=== PATIENT | female | born 1945 | race Caucasian/White ===

== ENCOUNTER 2018-09-05 12:05 | Emergency (ER) | payer MEDICARE ==
[2018-09-05] MEDS ORDERED: NORMAL SALINE 1000 ML 1,000 ML IV ONE ×2 (12:40→14:39)
[2018-09-05] MEDS ORDERED: ONDANSETRON HCL INJ/PF 4 MG/2 ML SDV IV ONE (12:40)
--- NOTE | 2018-09-05 13:27 | ER Document Report ---
Entered by KAIN JANSEN SCRIBE 09/05/18 1325 Acting as scribe for:COLIN AMADO DO ED Medical Screen (RME) - General Chief Complaint: Flu Symptoms Stated Complaint: POSSIBLE FLU Time Seen by Provider: 09/05/18 12:39 Primary Care Provider: KIMBERLEY MORRISON MD [Primary Care Provider] - Follow up as needed Mode of Arrival: Ambulatory Information source: Patient Notes: Patient is a 72 year old female with HTN, a colostomy bag and a history of colon cancer resected in [place] presents to the emergency department complaining of general malaise with associated symptoms of cough, rhinorrhea, chest pain and diarrhea. Patient states approximately 2 weeks ago she had a cough and congestion that initially relieved on its own but returned this week. She states the symptoms have worsened and she also developed chest pain when coughing. She states due to her symptoms she ordered 500 mg amoxicilin online and took approximately 3 doses. She states she has also used DayQuil, honey and cinnamon in attempt to alleviate her symptoms. I have greeted and performed a rapid initial assessment of this patient. A comprehensive ED assessment and evaluation of the patient, analysis of test results and completion of the medical decision making process will be conducted by additional ED providers. GENERAL: Alert, in a wheelchair, interacts well. No acute distress but does appear fatigued HEAD: Normocephalic, Atraumatic. EYES: Pupils equal, round, and reactive to light. EOMI. ENT: Oral mucosa moist, tongue midline. NECK: Full range of motion. Supple. Trachea midline. LUNGS: Expiratory rhonchi in the RLL. No respiratory distress. HEART: Regular rate and rhythm. No murmurs, gallops, or rubs. ABDOMEN: Soft, tender to palpate colostomy bag. Non-distended. Bowel sounds present in all 4 quadrants. EXTREMITIES: Moves all four extremities spontaneously. PSYCH: Normal affect, normal mood. TRAVEL OUTSIDE OF THE [place] IN LAST 30 DAYS: No - Related Data Allergies/Adverse Reactions: No Known Allergies Allergy (Verified 09/05/18 12:06) Past Medical History - Social History Frequency of alcohol use: None Drug Abuse: None Renal/ Medical History: Denies: Hx Peritoneal Dialysis Past Surgical History: Reports: Hx Abdominal Surgery - colostomy/colon resection, Hx Cholecystectomy, Hx Tubal Ligation Physical Exam - Vital signs Vitals: Temp Pulse Resp BP Pulse Ox 97.6 F 118 H 18 106/76 100 09/05/18 12:37 09/05/18 12:37 09/05/18 12:37 09/05/18 12:37 09/05/18 12:37 Course - Vital Signs Vital signs: Temp Pulse Resp BP Pulse Ox 97.6 F 118 H 18 106/76 100 09/05/18 12:37 09/05/18 12:37 09/05/18 12:37 09/05/18 12:37 09/05/18 12:37 Doctor's Discharge - Discharge Referrals: KIMBERLEY MORRISON MD [Primary Care Provider] - Follow up as needed I personally performed the services described in the documentation, reviewed and edited the documentation which was dictated to the scribe in my presence, and it accurately records my words and actions.
--- NOTE | 2018-09-05 13:39 | RADIOLOGY REPORT (SQ) ---
EXAM DESCRIPTION: CHEST 2 VIEWS COMPLETED DATE/TIME: 09/05/2018 1:13 pm REASON FOR STUDY: RLL rhonchi COMPARISON: Two-view chest 09/01/2008 EXAM PARAMETERS: NUMBER OF VIEWS: two views TECHNIQUE: Digital Frontal and Lateral radiographic views of the chest acquired. RADIATION DOSE: NA LIMITATIONS: none FINDINGS: LUNGS AND PLEURA: No opacities, masses or pneumothorax. No pleural effusion. MEDIASTINUM AND HILAR STRUCTURES: No masses or contour abnormalities. HEART AND VASCULAR STRUCTURES: Heart normal size. No evidence for failure. BONES: No acute findings. HARDWARE: Clips right upper quadrant post cholecystectomy OTHER: No other significant finding. IMPRESSION: NO ACUTE RADIOGRAPHIC FINDING IN THE CHEST. TECHNICAL DOCUMENTATION: JOB ID: [id number] [employer]- All Rights Reserved Reading location - IP/workstation name: [email or web address]
[2018-09-05 14:02] LABS: ABSOLUTE LYMPHOCYTES (AUTO) 2.4 10^3/uL (0.5-4.7); ABSOLUTE NEUT (AUTO) 6.3 10^3/uL (1.7-8.2); BASOPHILS % (AUTO) 0.2 % (0-2); EOSINOPHILS % (AUTO) 0.3 % (0-6); HEMATOCRIT 45.3 % (36.0-47.0); HEMOGLOBIN 15.7 g/dL (12.0-15.5); LYMPHOCYTES % (AUTO) 24.6 % (13-45); MEAN CORPUSCULAR HEMOGLOBIN 31.1 pg (27.0-33.4); MEAN CORPUSCULAR HGB CONC 34.6 g/dL (32.0-36.0); MEAN CORPUSCULAR VOLUME 90 fl (80-97); MONOCYTES % (AUTO) 10.1 % (3-13); PLATELET COUNT 215 10^3/uL (150-450); RED BLOOD COUNT 5.04 10^6/uL (3.72-5.28); RED CELL DISTRIBUTION WIDTH 12.6 % (11.5-14.0); SEGMENTED NEUTROPHILS % (AUTO) 64.8 % (42-78); TOTAL CELLS COUNTED % (AUTO) 100 %; WHITE BLOOD COUNT 9.7 10^3/uL (4.0-10.5)
[2018-09-05 14:21] LABS: ALANINE AMINOTRANSFERASE 24 U/L (9-52); ALBUMIN 4.9 g/dL (3.5-5.0); ALKALINE PHOSPHATASE 88 U/L (38-126); ANION GAP 17 (5-19); ASPARTATE AMINO TRANSFERASE 23 U/L (14-36); BILIRUBIN,DIRECT 0.2 mg/dL (0.0-0.4); BILIRUBIN,TOTAL 0.5 mg/dL (0.2-1.3); BLOOD UREA NITROGEN 37 mg/dL (7-20); CALCIUM 9.7 mg/dL (8.4-10.2); CARBON DIOXIDE 18 mmol/L (22-30); CHLORIDE 102 mmol/L (98-107); GLUCOSE 105 mg/dL (75-110); POTASSIUM 3.7 mmol/L (3.6-5.0); SODIUM 137.2 mmol/L (137-145); TOTAL PROTEIN 7.8 g/dL (6.3-8.2)
[2018-09-05] MEDS ORDERED: IPRATROPIUM/ALBUTEROL 0.5-2.5 MG/3 ML AMPUL NEB ONE (14:39)
--- NOTE | 2018-09-05 14:45 | ER Document Report ---
ED General - General Chief Complaint: Flu Symptoms Stated Complaint: POSSIBLE FLU Time Seen by Provider: 09/05/18 12:39 Primary Care Provider: KIMBERLEY MORRISON MD [Primary Care Provider] - Follow up as needed Mode of Arrival: Ambulatory TRAVEL OUTSIDE OF THE [place] IN LAST 30 DAYS: No - HPI Notes: Patient is a 72-year-old female that presents to the emergency department for chief complaint of cough and congestion. Patient reports 1 week of sinus congestion and nonproductive cough. She reports fever at home but has not taken her temperature. She states she has had chills intermittently. Patient does smoke daily but denies history of COPD in the pas t. She denies ever needing breathing treatments in the past. She did not get an influenza vaccine this year. Patient also complaining of malaise with decreased appetite, nausea, and diarrhea. Patient states that she has a history of large and small bowel resection with colostomy secondary to colon cancer. She is not currently undergoing any chemotherapy or radiation. She states her colostomy output has been significantly greater over the last 2-3 days then her usual. She denies any black or bloody stools. She denies any emesis. Patient has taken 3 doses of amoxicillin 500 mg which she ordered online which did not improve her symptoms. Past Medical History: Hypertension, colon cancer, history of PA Past Surgical History: Colostomy Social History: Daily tobacco. Denies alcohol and drug use Family History: Reviewed and noncontributory for presenting illness Allergies: Reviewed, see documented allergy list. REVIEW OF SYSTEMS: CONSTITUTIONAL : fever chills No diaphoresis recent illness EENT: No vision changes congestion No sore throat CARDIOVASCULAR: No chest pain No palpitations RESPIRATORY: shortness of breath cough No difficulty breathing GASTROINTESTINAL: No abdominal pain nausea No vomiting diarrhea GENITOURINARY: No dysuria No hematuria No difficulty urinating MUSCULOSKELETAL: No back pain No leg pain No arm pain SKIN: No rashes No lesions LYMPHATIC: No swollen, enlarged glands. NEUROLOGICAL: No lightheadedness No headache No weakness No paresthesias PSYCHIATRIC: No anxiety No depression PHYSICAL EXAMINATION: Vital signs reviewed, nursing noted reviewed. GENERAL: Well-appearing, well-nourished and in no acute distress. HEAD: Atraumatic, normocephalic. EYES: Eyes appear normal, extraocular movements intact, sclera anicteric, conjunctiva are normal. ENT: nares patent, oropharynx clear without exudates. Mildly dry mucous membranes. NECK: Normal range of motion, supple without lymphadenopathy LUNGS: Breath sounds wheezy to auscultation bilaterally. No accessory muscle use or tachypnea HEART: Tachycardic rate and regular rhythm without murmurs ABDOMEN: Light brown liquidy stool in colostomy bag, colostomy clean, dry with no surrounding tenderness or erythema, abdomen soft, nontender, hyperactive bowel sounds. No rebound, guarding, or rigidity. No masses appreciated. EXTREMITIES: Nontender, good range of motion, no pitting or edema. NEUROLOGICAL: No focal neurological deficits. Moves all extremities spontaneously Motor and sensory grossly intact on exam. PSYCH: Normal mood, normal affect. SKIN: Warm, Dry, normal turgor, no rashes or lesions noted on exposed skin - Related Data Allergies/Adverse Reactions: No Known Allergies Allergy (Verified 09/05/18 12:06) Past Medical History - General Information source: Patient - Social History Smoking Status: Current Every Day Smoker Frequency of alcohol use: None Drug Abuse: None Family History: Reviewed & Not Pertinent Patient has suicidal ideation: No Patient has homicidal ideation: No Renal/ Medical History: Denies: Hx Peritoneal Dialysis Past Surgical History: Reports: Hx Abdominal Surgery - colostomy/colon resection, Hx Cholecystectomy, Hx Tubal Ligation Physical Exam - Vital signs Vitals: Temp Pulse Resp BP Pulse Ox 97.6 F 118 H 18 106/76 100 09/05/18 12:37 09/05/18 12:37 09/05/18 12:37 09/05/18 12:37 09/05/18 12:37 Course - Re-evaluation Re-evalutation: 09/05/18 14:43 Vitals reviewed. Nursing notes reviewed. Patient received IV hydration and Zofran in triage which she states is making her feel much better. Her heart rate has improved after 1 L of normal saline. Patient's chest x-ray shows no pneumonia. She is currently afebrile and has had symptoms for the past week, influenza testing is not currently indicated although it may be causing her upper respiratory symptoms and fevers. Patient's lab work shows elevated creatinine at 1.9 and patient denies any history of kidney issues in the past. This is likely related to poor oral intake and diarrhea causing dehydration. Patient will be ordered a second liter of IV fluids as well as DuoNeb for further symptomatic management. Urinalysis still pending. 09/05/18 15:54 Urinalysis does show mild urinary tract infection. Patient on reevaluation is feeling much better after 2 L of IV fluids. She has remained hemodynamically stable. She is able to tolerate oral intake. Patient was offered observation in the hospital for her acute kidney injury but has declined. I feel she is otherwise safe for discharge. We had a long conversation regarding increasing her oral intake. She was advised to see her primary care doctor, Dr. Morrison, tomorrow for recheck of her renal function. She will return to the emergency room if she is having any difficulty tolerating oral intake or feels she is becoming dehydrated again. Patient will be given albuterol for her cough symptoms. She was counseled on tobacco cessation. Patient is stable at time of discharge and in agreement with plan of care. Laboratory 09/05/18 09/05/18 09/05/18 13:32 13:32 13:32 WBC 9.7 RBC 5.04 Hgb 15.7 H Hct 45.3 MCV 90 MCH 31.1 MCHC 34.6 RDW 12.6 Plt Count 215 Seg Neutrophils % 64.8 Lymphocytes % 24.6 Monocytes % 10.1 Eosinophils % 0.3 Basophils % 0.2 Absolute Neutrophils 6.3 Absolute Lymphocytes 2.4 Absolute Monocytes 1.0 Absolute Eosinophils 0.0 Absolute Basophils 0.0 Sodium 137.2 Potassium 3.7 Chloride 102 Carbon Dioxide 18 L Anion Gap 17 BUN 37 H Creatinine 1.96 H Est GFR ( Amer) 31 L Est GFR (Non-Af Amer) 25 L Glucose 105 Calcium 9.7 Total Bilirubin 0.5 Direct Bilirubin 0.2 Neonat Total Bilirubin Not Reportable Neonat Direct Bilirubin Not Reportable Neonat Indirect Bili Not Reportable AST 23 ALT 24 Alkaline Phosphatase 88 Troponin I < 0.012 Total Protein 7.8 Albumin 4.9 Urine Color Urine Appearance Urine pH Ur Specific [place] Urine Protein Urine Glucose (UA) Urine Ketones Urine Blood Urine Nitrite Urine Bilirubin Urine Urobilinogen Ur Leukocyte Esterase Urine WBC (Auto) Urine RBC (Auto) U Hyaline Cast (Auto) Urine Bacteria (Auto) Squamous Epi Cells Auto Urine Mucus (Auto) Urine Ascorbic Acid 09/05/18 14:31 WBC RBC Hgb Hct MCV MCH MCHC RDW Plt Count Seg Neutrophils % Lymphocytes % Monocytes % Eosinophils % Basophils % Absolute Neutrophils Absolute Lymphocytes Absolute Monocytes Absolute Eosinophils Absolute Basophils Sodium Potassium Chloride Carbon Dioxide Anion Gap BUN Creatinine Est GFR ( Amer) Est GFR (Non-Af Amer) Glucose Calcium Total Bilirubin Direct Bilirubin Neonat Total Bilirubin Neonat Direct Bilirubin Neonat Indirect Bili AST ALT Alkaline Phosphatase Troponin I Total Protein Albumin Urine Color YELLOW Urine Appearance SLIGHTLY-CLOUDY Urine pH 5.0 Ur Specific [place] 1.004 Urine Protein NEGATIVE Urine Glucose (UA) NEGATIVE Urine Ketones NEGATIVE Urine Blood NEGATIVE Urine Nitrite NEGATIVE Urine Bilirubin NEGATIVE Urine Urobilinogen NEGATIVE Ur Leukocyte Esterase SMALL H Urine WBC (Auto) 8 Urine RBC (Auto) 1 U Hyaline Cast (Auto) 14 Urine Bacteria (Auto) 3+ Squamous Epi Cells Auto 1 Urine Mucus (Auto) RARE Urine Ascorbic Acid NEGATIVE Chest X-Ray 09/05/18 12:40 IMPRESSION: NO ACUTE RADIOGRAPHIC FINDING IN THE CHEST. - Vital Signs Vital signs: Temp Pulse Resp BP Pulse Ox 97.6 F 118 H 18 106/76 100 09/05/18 12:37 09/05/18 12:37 09/05/18 12:37 09/05/18 12:37 09/05/18 12:37 - Laboratory Result Diagrams: 09/05/18 13:32 09/05/18 13:32 Laboratory results interpreted by me: 09/05/18 09/05/18 09/05/18 13:32 13:32 14:31 Hgb 15.7 H Carbon Dioxide 18 L BUN 37 H Creatinine 1.96 H Est GFR ( Amer) 31 L Est GFR (Non-Af Amer) 25 L Ur Leukocyte Esterase SMALL H - EKG Interpretation by Me Additional EKG results interpreted by me: 09/05/18 14:45 Interpreted by myself [id number]: Sinus tachycardia, rate 102, normal axis, no STEMI, no ectopy, nonspecific idioventricular conduction delay Discharge - Discharge Clinical Impression: Dehydration, RAYMUNDO (acute kidney injury), Acute UTI URI (upper respiratory infection) Qualifiers: URI type: unspecified URI Qualified Code(s): J06.9 - Acute upper respiratory infection, unspecified Condition: Stable Disposition: HOME, SELF-CARE Instructions: Urinary Tract Infection ([facility]), Upper Respiratory Illness ([facility]), Cephalexin ([facility]) Additional Instructions: Please return to the emergency department if you have any worsening, or concern of your symptoms. Please return to the emergency department if you develop chest pain, difficulty breathing, severe abdominal pain, or ongoing vomiting. If prescribed, take all medications as directed. If you have any questions or concerns do not hesitate to return the emergency department for evaluation. Stop taking the amoxicillin that you ordered online and begin taking Keflex as prescribed today. Use the albuterol inhaler as directed For cough and shortness of breath Increase your intake of water by drinking at a minimum 8, 8 ounce glasses of water daily See her primary care doctor tomorrow for repeat BUN and creatinine levels, this is your kidney function testing that was elevated today Prescriptions: Albuterol Sulfate [Proair HFA Inhalation Aerosol 8.5 gm MDI] 2 puff IH Q4H PRN #1 mdi PRN Reason: Cephalexin Monohydrate [Keflex 500 mg Capsule] 500 mg PO Q6H 5 Days capsule Fluconazole [Diflucan] 150 mg PO ONCE PRN #1 tablet PRN Reason: Forms: Smoking Cessation Education Referrals: KIMBERLEY MORRISON MD [Primary Care Provider] - Follow up as needed
[2018-09-05 14:49] LABS: APPEARANCE,URINE SLIGHTLY-CLOUDY; BILIRUBIN,URINE NEGATIVE (NEGATIVE); COLOR,URINE YELLOW; GLUCOSE, URINE NEGATIVE (NEGATIVE); KETONES,URINE NEGATIVE (NEGATIVE); LEUKOCYTE ESTERASE,URINE SMALL (NEGATIVE); NITRITE,URINE NEGATIVE (NEGATIVE); PROTEIN,URINE NEGATIVE (NEGATIVE); URINE SPECIFIC GRAVITY 1.004; UROBILINOGEN,URINE NEGATIVE mg/dL (<2.0)
[2018-09-05 16:04] VITALS: BP 116/56
--- NOTE | 2018-09-05 18:03 | EKG REPORT ---
SEVERITY:- ABNORMAL ECG - SINUS TACHYCARDIA BIATRIAL ABNORMALITIES NONSPECIFIC INTRAVENTRICULAR CONDUCTION DELAY LOW VOLTAGE IN FRONTAL LEADS MINIMAL ST DEPRESSION, ANTEROLATERAL LEADS : Confirmed by: Cindy Galeano MD 05-Sep-2018 18:02:45
== END 2018-09-05 16:11 | disposition home or self-care (01) ==
LOC: ER 12:05
DX: E86.0 Dehydration (principal); N17.9 Acute kidney failure, unspecified; N39.0 Urinary tract infection, site not specified; R05 Cough; R09.81 Nasal congestion; I10 Essential (primary) hypertension; I25.2 Old myocardial infarction; Z85.038 Personal history of other malignant neoplasm of large intestine; F17.200 Nicotine dependence, unspecified, uncomplicated
CPT/HCPCS: 93005; 94640; 99284; 96361; 96374; 36415; 85025; 80053; 81001; 84484; 71046; 93010; J2405; J7030; A9270; J7620